=== PATIENT | female | born 1940 | race Caucasian/White ===

== ENCOUNTER 2016-12-06 08:36 | Inpatient (IN) | payer BC, OTHER ==
[2016-11-20 09:35] VITALS: BMI 37.0
--- NOTE | 2016-11-20 10:13 | PAT Medication Instructions ---
Service Date Nov 20, 2016. Current Home Medication List Acetaminophen (Tylenol Arthritis Ext Rel), 1,300 MG PO BID Calcium Carbonate-Vitamin D (Calcium + D), 1 TAB PO HS Chromium (Chromium), 1,000 MCG PO QAM Dabigatran Etexilate Mesylate (Pradaxa), 150 MG PO BID Diphenhydramine Hcl (Benadryl Allergy), 26 MG PO HS Esomeprazole Magnesium (Nexium), 40 MG PO QAM Furosemide (Lasix), 20 MG PO QAM PRN for RN Gabapentin (Neurontin), 600 MG PO TID Dkmtvvhdanr-Qgvqvtlclsj-Vctkjo (GeneriMed Health Ad), 1 TAB PO QAM Magnesium Oxide (Mag-Ox), 400 MG PO QAM Metformin Hcl (Glucophage), 1,000 MG PO BID Metoprolol Succinate (Toprol Xl), 50 MG PO QAM Multiple Vitamins W/ Minerals (Hair Skin and Nails Formu), 1 TAB PO QAM Multivitamin (Multivitamin), 1 TAB PO HS Olmesartan/Hctz (Benicar Hct 20/12.5), 1 TAB PO QAM Propafenone Hcl (Propafenone Hcl), 150 MG PO TID Rosuvastatin Calcium (Crestor), 10 MG PO HS [Iron], 65 MG PO HS Medication Instructions For Your Scheduled Surgery - Instructions to be given by Cardiology: Dabigatran Etexilate Mesylate (Pradaxa), 150 MG PO BID - Hold the following medications 2 weeks prior to surgery: Skjdduvlpmd-Exbphlwhneq-Dgjtic (GeneriMed Health Ad), 1 TAB PO QAM - Hold the following medications 48 hours prior to surgery: Metformin Hcl (Glucophage), 1,000 MG PO BID - Hold the following medications the morning of surgery: Multiple Vitamins W/ Minerals (Hair Skin and Nails Formu), 1 TAB PO QAM Olmesartan/Hctz (Benicar Hct 20/12.5), 1 TAB PO QAM Chromium (Chromium), 1,000 MCG PO QAM Furosemide (Lasix), 20 MG PO QAM PRN Magnesium Oxide (Mag-Ox), 400 MG PO QAM - Take the following medications the morning of surgery with a sip of water OTHERWISE NOTHING TO EAT OR DRINK AFTER MIDNIGHT: Esomeprazole Magnesium (Nexium), 40 MG PO QAM Metoprolol Succinate (Toprol Xl), 50 MG PO QAM Gabapentin (Neurontin), 600 MG PO TID Propafenone Hcl (Propafenone Hcl), 150 MG PO TID Acetaminophen (Tylenol Arthritis Ext Rel), 1,300 MG PO BID (may take if needed up to 4 hours prior to surgery) - Take the following medications as scheduled the night before surgery: Multivitamin (Multivitamin), 1 TAB PO HS Rosuvastatin Calcium (Crestor), 10 MG PO HS [Iron], 65 MG PO HS Calcium Carbonate-Vitamin D (Calcium + D), 1 TAB PO HS Diphenhydramine Hcl (Benadryl Allergy), 26 MG PO HS Gabapentin (Neurontin), 600 MG PO TID Furosemide (Lasix), 20 MG PO QAM PRN for RN Propafenone Hcl (Propafenone Hcl), 150 MG PO TID Acetaminophen (Tylenol Arthritis Ext Rel), 1,300 MG PO BID If you have any questions please call us at [phone] or [phone] or [phone]
[2016-11-20 11:15] LABS: BASO % 0.5 %; BASO ABS # 0.03 K/uL (0-0.2); COMPLETE YES; EOS % 4.2 %; HEMATOCRIT 38.4 % (37-47); IG% 0.3 %; LYMPH % 26.9 %; LYMPH ABS # 1.73 K/uL (1.2-3.4); MEAN CORPUSCULAR HEMOGLOBIN 31.2 pg (25-34); MEAN CORPUSCULAR HGB CONC 32.8 g/dl (32-36); MEAN PLATELET VOLUME 10.2 fL (7.4-10.4); MONO % 7.8 %; NEUT % 60.3 %; PLATELET COUNT 282 K/uL (130-400); RED BLOOD COUNT 4.04 M/uL (4.2-5.4); WHITE BLOOD COUNT 6.42 K/uL (4.8-10.8)
--- NOTE | 2016-11-20 11:18 | DIAGNOSTIC IMAGING REPORT ---
CHEST PREADMISSION(PA/LAT) CLINICAL HISTORY: Preoperative chest COMPARISON STUDY: No previous studies for comparison. FINDINGS: The cardiac and mediastinal contours are normal. There is no evidence of focal pulmonary consolidation. There is no evidence of failure. No pleural effusions are visualized.[ IMPRESSION: No active disease in the chest. Electronically signed by: Mukesh Lemos M.D. 11/20/2016 11:16 AM Dictated Date/Time: 11/20/2016 11:16 AM
[2016-11-20 11:25] LABS: INR 1.1 (0.9-1.1); PARTIAL THROMBOPLASTIN RATIO 1.3
[2016-11-20 11:34] LABS: BUN/CREATININE RATIO 17.9 (10-20); CALCIUM 9.8 mg/dl (8.5-10.1); POTASSIUM 4.6 mmol/L (3.5-5.1)
[2016-11-20 12:41] LABS: ESTIMATED AVERAGE GLUCOSE 126 mg/dl; HA1C FLAG Normal (Normal)
--- NOTE | 2016-12-05 09:53 | HISTORY & PHYSICAL EXAMINATION ---
DATE OF ADMISSION: 12/06/2016 CHIEF COMPLAINT: Right knee pain. HISTORY OF PRESENT ILLNESS: The patient is a 76-year-old female with known osteoarthritis about her right knee. She is unable to take anti-inflammatory medications due to anticoagulation for her atrial fibrillation. She has ongoing pain and disability with activities of daily living. She has pain with prolonged weightbearing and standing activities. She has difficulty with any kneeling, bending, or squatting activities. She now desires to proceed with right total knee arthroplasty. PAST MEDICAL HISTORY: Atrial fibrillation, hyperlipidemia, hypertension, gastroesophageal reflux, type 2 diabetes, diverticulosis, hiatal hernia. PAST SURGICAL HISTORY: Tonsillectomy, hernia repair, cholecystectomy, cataract surgery. MEDICATIONS: Propafenone MYB220 mg 3 times daily, metoprolol succinate ER 50 mg daily, Benicar 20 mg daily, furosemide 20 mg daily p.r.n., multivitamin daily, gabapentin 600 mg twice daily or 3 times daily, Biotin Extra Strength daily, diphenhydramine HCl 25 mg p.o. at bedtime, esomeprazole 40 mg daily, metformin HCL 1000 mg b.i.d., Pradaxa 150 mg b.i.d., Mag-Ox daily, rosuvastatin 10 mg daily, calcium 600 plus D3 of 1200 mg daily, chromium picolinate 500 mcg daily, Tylenol p.r.n., iron 325 mg daily. ALLERGIES: No known drug allergies. SOCIAL HISTORY AND REVIEW OF SYSTEMS: Noncontributory. PHYSICAL EXAMINATION: GENERAL: Well-nourished, well-developed elderly female who appears her stated age. HEENT: Normocephalic, atraumatic, extraocular movements intact, oropharynx pink and moist. NECK: Supple without adenopathy. LUNGS: Clear to auscultation bilaterally. HEART: Regular rate and rhythm. ABDOMEN: Soft, nontender, nondistended, obese. EXTREMITIES: The upper extremities are within normal limits. The right knee has a slight valgus alignment. She complains primarily of lateral compartment pain. She has mild crepitus with range of motion. Her range of motion is from 0-120 degrees. X-RAYS: X-rays were reviewed. She has a slight valgus aligned knee. She has bone on bone arthritis of the lateral compartment on the flexion view. She has lateral osteophyte formation. She has mild degenerative change about the patellofemoral joint. ASSESSMENT: Right knee degenerative joint disease. PLAN: Risks versus benefits were discussed. Consent was obtained. The patient has been seen and cleared by [facility]. Will proceed with right total knee arthroplasty in the near future.
[~2016-12-06] VITALS: Ht 167.6 cm; Wt 104.8 kg
[2016-12-06] VITALS (8 sets, daily range): BP systolic 94–131; BP diastolic 54–82; PULSE 70–78; TEMP 36.3–36.8; O2SAT 91–98; Ht 167.6 cm; Wt 104.8 kg
[~2016-12-06 08:36] MED LIST: ACET1TAB84 PO; ACETAMINOPHEN 500 MG TAB PO SCH; ATROPINE SULFATE 0.1 MG/ML 5ML SYR IV PRN; BNC/20125 PO; BUPIVACAINE 0.25% 30 ML VIAL ONE; BUPIVACAINE 0.5 % 5 MG/1 ML PF 10ML VIAL ONE; CALC600T9 PO; CEFAZOLIN 2000 MG/60 ML D5W 60 ML IV SCH; CHRO1TAB2 PO; CRS/10 PO; CeleBREX 200 MG CAP PO SCH; DABI150C PO; DEXAMETHASONE 4 MG TAB PO SCH; DIPH1TAB PO; EpHEDrine SULFATE INJ 50 MG/ML AMP IV PRN; FAMOTIDINE 20 MG TAB PO SCH; FENTANYL CITRATE INJ 50 MCG/1 ML 2 ML VIAL IV PRN; FURO-85 PO; GABA-113 PO; GABAPENTIN 300 MG CAP PO SCH; GLUC1TAB94 PO; IRON PO; LACTATED RINGER'S 1000ML 1,000 ML IV SCH; LACTATED RINGER'S 1000ML 500 ML IV ONE; LACTATED RINGER'S 1000ML IV SCH; MAGN400T6 PO; METF-384 PO; METO-217 PO; METOCLOPRAMIDE HCL 10 MG TAB PO SCH; MULT-1018 PO; MULT-506 PO; NXM/40 PO; ONDANSETRON INJ 2 MG/ML 2 ML VIAL IV PRN; PROP150T PO; ROPIVACAINE 5MG/ML 30 ML 150 MG, BUPIVACAINE/EPINEPHR 0.5% MPF 30 ML, KETOROLAC TROMETH... INFIL SCH
[2016-12-06] MEDS ORDERED: MIDAZOLAM HCL 1 MG/ML 2ML VIAL ONE ×2 (09:33)
[2016-12-06] MEDS ORDERED: FENTANYL CITRATE INJ 50 MCG/1 ML 2 ML VIAL ONE (09:33)
[2016-12-06] MEDS ORDERED: NURSING VERBAL MED ORDER ONE (10:15)
--- NOTE | 2016-12-06 10:15 | History & Physical Bridge Note ---
H&P Re-Evaluation Bridge Note: I have examined the patient, reviewed the History & Physical and in the interval since the performance of the History & Physical I have noted the following changes of clinical significance: No changes noted
[2016-12-06] MEDS ORDERED: ORTHO JOINT ANESTHETIC ONE (10:55)
[2016-12-06] MEDS ORDERED: BACITRACIN 50000 UNIT VIAL ONE (10:55)
[2016-12-06] MEDS ORDERED: POVIDONE-IODINE OP SOLN 30 ML BTL ONE (10:55)
[2016-12-06] MEDS: TRANEXAMIC ACID AMP 1,000 MG in NSS 100ML IV SCH ×2 (11:04→11:30)
[2016-12-06 11:15] LABS: INR 1.1 (0.9-1.1); PROTHROMBIN TIME (PATIENT) 11.3 SECONDS (9.0-12.0)
[2016-12-06] MEDS ORDERED: PROPOFOL IV EMULSION 10 MG/ML 20 ML VIAL IV ONE (11:40)
[2016-12-06] MEDS ORDERED: LIDOCAINE HCL 2% 2 ML VIAL (20MG/ML) ONE (11:40)
[2016-12-06] MEDS ORDERED: EpHEDrine SULFATE INJ 50 MG/ML AMP ONE (11:50)
--- NOTE | 2016-12-06 12:16 | [facility] Post Operative Brief Note ---
Immediate Operative Summary Operative Date Dec 06, 2016. Pre-Operative Diagnosis Right knee degenerative joint disease Post-Operative Diagnosis Right knee degenerative joint disease Procedure(s) Performed Right Total Knee Arthroplasty Surgeon Dr. Carlos Meza Well Driller Surgeon(s) Terry Subramanian PA-C Estimated Blood Loss 20mL Findings oa Specimens Specimen A. Right knee bone and tissue Disposition Recovery Room / PACU
[2016-12-06] MEDS ORDERED: MAGNESIUM HYDROXIDE SUSP 30 ML UDC PO PRN (13:00)
[2016-12-06] MEDS ORDERED: ONDANSETRON INJ 2 MG/ML 2 ML VIAL IV PRN (13:00)
[2016-12-06] MEDS ORDERED: MoRPHine SULFATE 2 MG/ML CARP IV PRN (13:00)
[2016-12-06] MEDS ORDERED: FUROSEMIDE 20 MG TAB PO PRN (13:00)
[2016-12-06] MEDS ORDERED: ZOLPIDEM TARTRATE 5 MG TAB PO PRN (13:00)
[2016-12-06] MEDS ORDERED: ALUMINUM/MAGNESIUM/SIMETH (MAALOX MAX) 30 ML UDC PO PRN (13:00)
[2016-12-06] MEDS ORDERED: METOCLOPRAMIDE HCL INJ 5 MG/ML 2 ML VIAL IV PRN (13:00)
--- NOTE | 2016-12-06 13:50 | Anesthesiology Progress Note ---
Anesthesia Post Op Note Date & Time Dec 06, 2016 at 13:49 Vital Signs Pain Intensity: 0 Vital Signs Past 12 Hours Date Time Temp Pulse Resp B/P Pulse Ox O2 Delivery O2 Flow Rate FiO2 12/06/16 13:40 73 16 125/63 96 Nasal Cannula 2 12/06/16 13:30 71 16 126/68 98 Nasal Cannula 2 12/06/16 13:20 74 16 122/63 97 Nasal Cannula 2 12/06/16 13:10 70 16 118/88 98 Nasal Cannula 2 12/06/16 13:00 73 16 116/66 100 Mask 5 12/06/16 12:50 36.4 75 16 113/58 96 Mask 5 12/06/16 09:07 36.8 73 20 131/82 96 Room Air Notes Mental Status: alert / awake / arousable, participated in evaluation Pt Amnestic to Procedure: Yes Nausea / Vomiting: adequately controlled Pain: adequately controlled Airway Patency, RR, SpO2: stable & adequate BP & HR: stable & adequate Hydration State: stable & adequate Neuraxial Anesthesia: was administered, sensory block is resolving Anesthetic Complications: no major complications apparent
--- NOTE | 2016-12-06 13:50 | DIAGNOSTIC IMAGING REPORT ---
RIGHT KNEE 1 OR 2 VIEWS ROUTINE CLINICAL HISTORY: AP/LATERAL IN PACU RIGHT KNEE Right pain COMPARISON: None. DISCUSSION: Anatomic alignment status post total right knee replacement. Good contact between prosthetic and underlying bone. Expected soft tissue postoperative change IMPRESSION: Negative study. Electronically signed by: Spencer Hale M.D. 12/06/2016 1:49 PM Dictated Date/Time: 12/06/2016 1:28 PM
--- NOTE | 2016-12-06 15:24 | OPERATIVE REPORT ---
DATE OF OPERATION: 12/06/2016 PREOPERATIVE DIAGNOSIS: Osteoarthritis, right knee. POSTOPERATIVE DIAGNOSIS: Osteoarthritis, right knee. PROCEDURE: Right total knee arthroplasty. SURGEON: Dr. Meza. MACHINE HOSE CUTTER: Terry Subramanian PA-C ANESTHESIA: Spinal. COMPLICATIONS: None. COMPONENTS USED: Femoral size 3, tibial size 3, tibial poly 13, patella size 36. CONDITION: Recovery room stable. OPERATION AND FINDINGS: Following induction of spinal anesthesia, the patient's right leg was prepped and draped in the usual sterile manner. Limb was exsanguinated with an Esmarch bandage and tourniquet was inflated to 350 mmHg. A longitudinal incision was made anteriorly. Subcutaneous tissue was sharply dissected. Electrocautery was used for hemostasis. Prepatellar bursa was incised and median parapatellar incision was performed. Patella was everted and the knee was flexed. Fat pad was removed to aid in visualization and the anterior and posterior cruciate ligaments were removed. The medial face of the tibia was cleared of soft tissue first with a Bovie and a Lobato elevator. This tissue was retracted posteriorly using a blunt Hohmann. A Maddox retractor was used to expose the synovium above on the anterior aspect of the femur and this was removed down to bone. The PSI guide was placed on the distal femur and two pins were placed anteriorly and kept in position and two additional pins were placed distally and removed. The distal femoral cutting block was placed in position and the distal femoral cut was used in the +0 setting. Next, the cutting block was removed and the spinal block was placed in the distal end of the femur. Care was taken to ensure appropriate external rotation and feeler gauge was used to ensure no notching would occur. The femoral block was centered on the distal femur and in the medial and lateral direction and was fixed using two bone screws. The gold pins were then removed. The oscillating saw was used to create the bone cuts and the distal femoral cutting block was removed and the reciprocating saw was used to further trim the femoral cuts as well as a deep in the area for the trochlear groove. Next, posterior condyle remnants were removed. Following this, a meniscal clamp and knife were utilized to remove the anterior portion of both medial and lateral meniscus. The proximal tibia PSI guide was placed into position and the proximal tibial cutting guide was screwed into position. The extra medullary alignment guide was utilized to ensure appropriate alignment. The proximal tibia was cut and the proximal tibial cutting block was removed and this bone fragment was removed. The appropriate guide was used to perform the notch cut on the distal femur and a lamina button bradder and a cochlear knife were utilized to finish both medial and lateral meniscectomies to remove any remnants of the posterior or anterior cruciate ligaments. Following this, the distal femoral component was impacted into position and blunt Stephania was used to sublux the tibia anteriorly. The proximal tibia was sized and a 3 tibial tray was chosen as the size to be used. This was put into position and appropriate external rotation and a double check with extramedullary alignment guide was performed. The canal for the tibial stem was prepared first with a 17 mm drill and then the punch and a mallet and the trial tibial poly was placed. A 36 was chosen the size to be used. It was brought to extension and the patella was prepared with the patellar reamer. A 13 component was chosen the size to be used. The trial component was placed and knee was taken through a full range of motion and there was found to be no lateral subluxation of the tibia. No lateral release was required. The trials were all removed. The final components were obtained and assembled. Cement was mixed. The knee was thoroughly irrigated and the ortho mix was injected about the knee joint. The final components were cemented into position. After thoroughly suctioning and drying the bone ends, all excess cement was removed. The knee was held in extension while the cement hardened. The wound was irrigated and closed over a Hemovac drain. #1 Vicryl was used to close the extensor mechanism. Subcutaneous tissues closed using 0 Dexon. Skin was closed with christian. Sterile dressing of Adaptic, 4 x 4's, sterile Webril, and Johny was applied. The patient tolerated the procedure well. Due to the complex nature of the procedure, the entire surgery was performed with the operational assistance of Terry Subramanian PA-C. The executive chef assistant, under direct supervision, was involved in the actual performance of all aspects of the surgical procedure including hemostasis, tissue retraction and incision, instrument management, patient positioning, and wound closure. I attest to the content of the Intraoperative Record and any orders documented therein. Any exceptio ns are noted below.
[2016-12-06] MEDS ORDERED: MoRPHine SULFATE 10 MG/ML CARP/VIAL IV PRN (16:00)
[2016-12-06] MEDS ORDERED: MoRPHine SULFATE 4 MG/ML 1 ML CARP\\VIAL IV PRN (16:00)
--- NOTE | 2016-12-06 16:29 | CONSULTATION REPORT ---
DATE OF CONSULTATION: 12/06/2016 MEDICAL CONSULTATION CHIEF COMPLAINT: Right knee pain. We are consulted for medical management. HISTORY OF PRESENT ILLNESS: A 76-year-old female with known osteoarthritis, right knee and failed outpatient conservative management treatment and was admitted for a right total knee arthroplasty that was done today. Currently, she denies any complaints. REVIEW OF SYSTEMS: Negative except as above. Ten out of 14 systems were reviewed. PAST MEDICAL HISTORY: Significant for atrial fibrillation, hyperlipidemia, hypertension, GERD, type 2 diabetes mellitus, diverticulosis, hiatal hernia. PAST SURGICAL HISTORY: Hernia repair, tonsillectomy, cholecystectomy, cataract surgery. OUTPATIENT MEDICATIONS: Tylenol 1300 mg p.o. b.i.d., calcium carbonate with vitamin D 1 tablet p.o. at bedtime, chromium 1000 mcg p.o. daily, Pradaxa 150 mg p.o. b.i.d., Benadryl 25 mg p.o. at bedtime, Nexium 40 mg daily, furosemide 20 mg p.o. daily p.r.n. swelling, gabapentin 600 mg p.o. t.i.d., glucosamine chondroitin hyaluronic acid 1 tablet p.o. daily, magnesium oxide 400 mg p.o. daily, metformin 1000 mg p.o. b.i.d., metoprolol XL 50 mg p.o. daily, multivitamin 1 tablet p.o. daily at bedtime, Benicar HCT 20/12.5 mg 1 tablet p.o. daily, propafenone 150 mg p.o. t.i.d., rosuvastatin 10 mg p.o. at bedtime, iron 65 mg p.o. at bedtime. ALLERGIES: The patient has no known allergies. FAMILY HISTORY: Significant for coronary artery disease and diabetes. SOCIAL HISTORY: Does not smoke, does not drink, does not use drugs. PHYSICAL EXAMINATION: VITAL SIGNS: Temperature 36.3, pulse 78, respirations 16, blood pressure 126/75, 94% on 2 liters nasal cannula. GENERAL: Not in acute distress. HEENT: Normocephalic, atraumatic. PERRLA, EOMI. Mouth moist, no lesions. NECK: No JVD. Trachea midline. Thyroid is not enlarged. LUNGS: Clear to auscultation bilateral. No wheezes, no rhonchi. ABDOMEN: Soft, nontender, nondistended. Bowel sounds present bilateral. EXTREMITIES: Upper extremities within normal limits. The right knee has a cold compress and a dressing over it. 2+ pulses present bilateral. No cyanosis or clubbing. IMAGING DATA: X-ray was done today showed negative study, anatomic alignment status post total right knee replacement. LABORATORIES: Not done except for glucose checks in the range of 136-151 with A1c of 6.0 on 11/20/2016. INR 1.1 and PTT of 25.8. ASSESSMENT AND PLAN: This is a 76-year-old female who had her right knee replaced; we are consulted for medical management. 1. History of paroxysmal atrial fibrillation, currently normal sinus rhythm. Continue metoprolol and Pradaxa twice a day. 2. Hyperlipidemia. Continue statins. 3. Hypertension. Restart Benicar, metoprolol. 4. Gastroesophageal reflux disease, restart omeprazole. 5. Type 2 diabetes. Hold metformin for 2 days and restart later, institute insulin sliding scale and check glucose before meals and at bedtime. Recent A1c is 6.0. 6. History of occasional lower extremity swelling. The patient was taking furosemide 20 mg daily as needed for swelling. Continue to monitor volume status and give Lasix as needed. 7. Status post right knee replacement. Deep vein thrombosis prophylaxis, physical therapy, occupational therapy, pain management as per surgery. The patient is a full code. Time spent on doing this consult - 35 minutes.
[2016-12-06] MEDS: SODIUM CHLORIDE 0.9% 1000ML 1,000 ML IV SCH ×2 (17:34→22:26)
[2016-12-06] MEDS: KETOROLAC TROMETHAMINE 15 MG/ML VIAL IV. SCH ×2 (17:34→22:23)
[2016-12-06] MEDS: GABAPENTIN 600 MG TAB PO SCH ×2 (17:34→21:04)
[2016-12-06] MEDS: FERROUS GLUCONATE 324 MG TAB PO SCH (17:35)
[2016-12-06] MEDS: PROPAFENONE HCL 150 MG TAB PO SCH ×2 (17:35→21:05)
[2016-12-06] MEDS: ACETAMINOPHEN 500 MG TAB PO SCH (17:36)
[2016-12-06] MEDS: OXYCODONE HCL IR 5 MG TAB (IMMEDIATE RELEASE) PO PRN (18:18)
[2016-12-06] MEDS ORDERED: GLUCOSE 10 TABS/TUBE PO PRN (18:30)
[2016-12-06] MEDS ORDERED: GLUCOSE 40% GEL 15 GM TUBE PO PRN (18:30)
[2016-12-06] MEDS ORDERED: GLUCAGON FOR INJ 1 MG VIAL SQ PRN (18:30)
[2016-12-06] MEDS ORDERED: DEXTROSE 50% 50 ML SYR IV PRN (18:30)
[2016-12-06] MEDS: CEFAZOLIN IV 2,000 MG in DEXTROSE 5% 50ML 50 ML IV SCH (21:04)
[2016-12-06] MEDS: DOCUSATE SODIUM 100 MG CAP PO SCH (21:04)
[2016-12-06] MEDS: ROSUVASTATIN CALCIUM 10 MG TAB PO SCH (21:04)
[2016-12-06] MEDS: OXYCODONE HCL 10 MG TABCR (OXYCONTIN) PO SCH (21:05)
[2016-12-06] MEDS: INSULIN ASPART 100 UNITS/ML 3 ML PEN SC SCH (21:07)
[2016-12-07] MEDS: ACETAMINOPHEN 500 MG TAB PO SCH ×3 (01:53→18:35)
[2016-12-07 03:17] VITALS: BP 99/59; PULSE 91; TEMP 36.6; O2SAT 92
[2016-12-07] MEDS: CEFAZOLIN IV 2,000 MG in DEXTROSE 5% 50ML 50 ML IV SCH (03:59)
[2016-12-07] MEDS: KETOROLAC TROMETHAMINE 15 MG/ML VIAL IV. SCH ×2 (04:00→10:00)
[2016-12-07 06:32] LABS: HEMATOCRIT 31.4 % (37-47); MEAN CELL VOLUME 92.9 fL (80-100); MEAN CORPUSCULAR HEMOGLOBIN 30.5 pg (25-34); MEAN CORPUSCULAR HGB CONC 32.8 g/dl (32-36); PLATELET COUNT 249 K/uL (130-400); RED BLOOD COUNT 3.38 M/uL (4.2-5.4); WHITE BLOOD COUNT 11.73 K/uL (4.8-10.8)
[2016-12-07 07:05] LABS: BUN/CREATININE RATIO 26.9 (10-20); CALCIUM 8.4 mg/dl (8.5-10.1); CREATININE 1.3 mg/dl (0.60-1.20); POTASSIUM 4.7 mmol/L (3.5-5.1)
[2016-12-07] MEDS ORDERED: DEXAMETHASONE INJ 10 MG in SYRINGE 0 ML IV SCH (07:30)
--- NOTE | 2016-12-07 07:40 | Orthopedic Progress Note ---
Orthopedic Progress Note Date of Service Dec 07, 2016. Subjective Post OP Day: 1 Reports: feeling well Objective N/V intact, dressing C/D/I (Hemovac in place), toes mobile Date Time Temp Pulse Resp B/P Pulse Ox O2 Delivery O2 Flow Rate FiO2 12/07/16 03:17 36.6 91 18 99/59 92 Room Air 12/07/16 00:22 Room Air 12/06/16 23:18 36.4 73 18 94/54 91 Room Air 12/06/16 19:16 36.6 70 16 104/61 94 Room Air 12/06/16 17:23 36.3 76 18 112/65 96 Room Air 12/06/16 16:23 36.6 78 16 101/60 97 Nasal Cannula 2.0 12/06/16 15:50 Nasal Cannula 2.0 12/06/16 15:20 36.5 71 16 115/69 98 Nasal Cannula 2.0 12/06/16 14:50 36.4 72 16 116/69 97 Nasal Cannula 2.0 12/06/16 14:15 94 Nasal Cannula 2.0 12/06/16 14:15 94 Nasal Cannula 2.0 12/06/16 14:15 36.3 78 16 126/75 94 Nasal Cannula 2.0 12/06/16 13:59 75 16 126/66 96 Nasal Cannula 2 12/06/16 13:50 36.4 75 16 126/67 96 Nasal Cannula 2 12/06/16 13:40 73 16 125/63 96 Nasal Cannula 2 12/06/16 13:30 71 16 126/68 98 Nasal Cannula 2 12/06/16 13:20 74 16 122/63 97 Nasal Cannula 2 12/06/16 13:10 70 16 118/88 98 Nasal Cannula 2 12/06/16 13:00 73 16 116/66 100 Mask 5 12/06/16 12:50 36.4 75 16 113/58 96 Mask 5 12/06/16 09:07 36.8 73 20 131/82 96 Room Air Laboratory Results 24 Hours: Test 12/06/16 11:02 12/07/16 05:42 Prothromb Time International Ratio 1.1 Prothrombin Time 11.3 SECONDS Hematocrit 31.4 % Hemoglobin 10.3 g/dL Assessment & Plan Assessment: 76 yo female stable POD #1 s/p right TKA Plan: 1. Med management 2. DVT prophylaxis- Pradaxa, TEDs, SCDs 3. PT/OT 4. D/C planning- pt interested in [facility] rehab
[2016-12-07 07:48] VITALS: BP 140/60; PULSE 92; TEMP 36.2; O2SAT 95
[2016-12-07 08:50] VITALS: O2SAT 95
[2016-12-07] MEDS: FERROUS GLUCONATE 324 MG TAB PO SCH ×3 (08:54→18:35)
[2016-12-07] MEDS: DOCUSATE SODIUM 100 MG CAP PO SCH ×2 (08:54→21:53)
[2016-12-07] MEDS: PANTOprazole SOD 40 MG TAB PO SCH (08:55)
[2016-12-07] MEDS: MAGNESIUM OXIDE 400 MG TAB PO SCH (08:55)
[2016-12-07] MEDS: GABAPENTIN 600 MG TAB PO SCH ×3 (08:55→21:53)
[2016-12-07] MEDS: MULTIVITAMIN TAB PO SCH (08:55)
[2016-12-07] MEDS: PROPAFENONE HCL 150 MG TAB PO SCH ×3 (08:56→21:53)
[2016-12-07] MEDS: METOPROLOL SUCC 50MG EXT REL TAB PO SCH (08:56)
[2016-12-07] MEDS ORDERED: HYDROCHLOROTHIAZIDE 25 MG TAB PO SCH (09:00)
[2016-12-07] MEDS ORDERED: OLMESARTAN MEDOXOMIL 20 MG TAB PO SCH (09:00)
[2016-12-07] MEDS: POLYETHYLENE (MIRALAX) 17 GM PACK PO SCH ×2 (09:01→21:54)
[2016-12-07] MEDS: OXYCODONE HCL 10 MG TABCR (OXYCONTIN) PO SCH ×2 (09:02→21:54)
[2016-12-07] MEDS: SODIUM CHLORIDE 0.9% 1000ML 1,000 ML IV SCH (09:05)
[2016-12-07] MEDS ORDERED: NURSING VERBAL MED ORDER ONE ×2 (10:15→11:30)
[2016-12-07] MEDS: INSULIN ASPART 100 UNITS/ML 3 ML PEN SC SCH ×4 (10:18→21:00)
--- NOTE | 2016-12-07 10:18 | Clinical Documentation Query ---
CLINICAL DOCUMENTATION QUERY Dr. KEARNEY, In your clinical opinion is this patient being managed for: (x ) Acute kidney failure on CKD stage III ( ) Other explanation of clinical findings (Please Explain) ( ) Unable to determine (Please Define) ( ) Need to Discuss ( ) Not Agree The medical record reflects the following clinical findings, treatment, and risk factors. Clinical Indicators: Baseline Cr 1.0 which has trended up to Cr 1.30. GFR range of 40.4-55.5 Treatment: IV fluids, monitor PRP Risk Factors: age, A fib, hx hypertension, DM, mild hypotension after surgery Please clarify and document your clinical opinion in the progress notes and discharge summary. Terms such as "probable", "suspected", "likely", "questionable", "possible", or "still to be ruled out" are acceptable. IF IN AGREEMENT, YOU MUST DOCUMENT ABOVE DIAGNOSTIC STATEMENT IN DAILY PROGRESS NOTES AND DISCHARGE SUMMARY. This document is not part of the patient's record. Thank You, Sarah Hogan, RN [phone]
[2016-12-07 11:31] VITALS: BP 102/64; PULSE 87; TEMP 36.7; O2SAT 93
[2016-12-07] MEDS: DABIGATRAN ELEXILATE 75 MG CAP PO SCH ×2 (11:34→21:54)
[2016-12-07 15:16] VITALS: BP 111/67; PULSE 69; TEMP 36.8; O2SAT 95
--- NOTE | 2016-12-07 20:02 | Progress Note ---
Subjective Date of Service: Dec 07, 2016. Subjective Pt evaluation today including: conversation w/ patient, conversation w/ family ( at bedside), physical exam, chart review, lab review, review of inpatient medication list Pain: right knee - mild only PO Intake: eating fine Voiding: no voiding problems "I feel good" denies cp, sob, dyspnea, abd pain, nausea, emesis; minimal flatus, however hoping to go to [facility] for rehab Review of Systems Constitutional: No chills, No fever Respiratory: No cough, No shortness of breath, No sputum Cardiac: No chest pain, No orthopnea Abdomen: No pain Objective Vital Signs Date Time Temp Pulse Resp B/P Pulse Ox O2 Delivery O2 Flow Rate FiO2 12/07/16 15:45 Room Air 12/07/16 15:16 36.8 69 18 111/67 95 Room Air 12/07/16 11:31 36.7 87 14 102/64 93 Room Air 12/07/16 08:50 95 Room Air 12/07/16 07:48 36.2 92 16 140/60 95 Room Air 12/07/16 07:20 Room Air 12/07/16 03:17 36.6 91 18 99/59 92 Room Air 12/07/16 00:22 Room Air 12/06/16 23:18 36.4 73 18 94/54 91 Room Air Physical Exam General Appearance: no apparent distress ENT: pharynx normal Neck: no JVD Respiratory/Chest: lungs clear, no respiratory distress, no accessory muscle use Cardiovascular: regular rate, rhythm, no gallop, no murmur Abdomen: normal bowel sounds, non tender, soft, no organomegaly Extremities: no pedal edema Neurologic/Psychiatric: alert, oriented x 3 Comments: right knee - dressings intact, drain in place Laboratory Results Last 24 Hours Test 12/06/16 20:59 12/07/16 05:42 12/07/16 09:09 12/07/16 12:06 Bedside Glucose 181 mg/dl 285 mg/dl 232 mg/dl White Blood Count 11.73 K/uL Red Blood Count 3.38 M/uL Hemoglobin 10.3 g/dL Hematocrit 31.4 % Mean Corpuscular Volume 92.9 fL Mean Corpuscular Hemoglobin 30.5 pg Mean Corpuscular Hemoglobin Concent 32.8 g/dl RDW Standard Deviation 44.1 fL RDW Coefficient of Variation 12.9 % Platelet Count 249 K/uL Mean Platelet Volume 10.0 fL Sodium Level 140 mmol/L Potassium Level 4.7 mmol/L Chloride Level 107 mmol/L Carbon Dioxide Level 25 mmol/L Anion Gap 8.0 mmol/L Blood Urea Nitrogen 35 mg/dl Creatinine 1.30 mg/dl Est Creatinine Clear Calc Drug Dose 46.4 ml/min Estimated GFR () 46.8 Estimated GFR (Non- 40.4 BUN/Creatinine Ratio 26.9 Random Glucose 152 mg/dl Calcium Level 8.4 mg/dl Test 12/07/16 17:06 Bedside Glucose 134 mg/dl Assessment and Plan 76yo female: 1. s/p right TKR - DVT proph, pain control, dispo - per ortho 2. acute kidney injury - hold HCTZ, hold ARB, hold toradol; has received significant volume of fluid since admission - reasonable to observe off fluids rest of today repeat BMP am 3. acute blood loss anemia - mild, repeat H/H in am 4. a. fib - clinically appears to be in NSR. Cont BB, cont pradaxa 5. T2DM - adjust correction factor & carb ratio for uncontrolled fingersticks 6. HTN - controlled 7. GERD - PPI 8. constipation - add miralax BID will follow Discharge planning: rehab hospital
[2016-12-07] MEDS: ROSUVASTATIN CALCIUM 10 MG TAB PO SCH (22:48)
[2016-12-07 23:16] VITALS: BP 106/64; PULSE 69; TEMP 36.8; O2SAT 95
[2016-12-08] VITALS (8 sets, daily range): BP systolic 110–151; BP diastolic 65–81; PULSE 62–96; TEMP 36.4–37; O2SAT 92–97
[2016-12-08] MEDS: ACETAMINOPHEN 500 MG TAB PO SCH ×2 (01:56→09:44)
[2016-12-08 07:10] LABS: MEAN CELL VOLUME 93.2 fL (80-100); MEAN CORPUSCULAR HEMOGLOBIN 30.7 pg (25-34); MEAN PLATELET VOLUME 10.1 fL (7.4-10.4); PLATELET COUNT 274 K/uL (130-400); RED BLOOD COUNT 3.22 M/uL (4.2-5.4); WHITE BLOOD COUNT 11.43 K/uL (4.8-10.8)
[2016-12-08 07:28] LABS: BUN/CREATININE RATIO 31.5 (10-20); CALCIUM 8.9 mg/dl (8.5-10.1); CREATININE 1.1 mg/dl (0.60-1.20)
[2016-12-08] MEDS: POLYETHYLENE (MIRALAX) 17 GM PACK PO SCH (08:00)
[2016-12-08] MEDS: FERROUS GLUCONATE 324 MG TAB PO SCH ×2 (08:00→12:54)
[2016-12-08] MEDS: GABAPENTIN 600 MG TAB PO SCH ×2 (08:01→13:52)
[2016-12-08] MEDS: PANTOprazole SOD 40 MG TAB PO SCH (08:01)
[2016-12-08] MEDS: PROPAFENONE HCL 150 MG TAB PO SCH ×2 (08:01→13:53)
[2016-12-08] MEDS: MAGNESIUM OXIDE 400 MG TAB PO SCH (08:01)
[2016-12-08] MEDS: MULTIVITAMIN TAB PO SCH (08:01)
[2016-12-08] MEDS: METOPROLOL SUCC 50MG EXT REL TAB PO SCH (08:01)
[2016-12-08] MEDS: DABIGATRAN ELEXILATE 75 MG CAP PO SCH (08:01)
[2016-12-08] MEDS: INSULIN ASPART 100 UNITS/ML 3 ML PEN SC SCH ×2 (08:09→12:57)
[2016-12-08] MEDS: OXYCODONE HCL 10 MG TABCR (OXYCONTIN) PO SCH (08:10)
--- NOTE | 2016-12-08 08:54 | PROGRESS NOTE ---
DATE: 12/08/2016 DATE: 12/08/2016. HISTORY OF PRESENT ILLNESS: Mrs. Odell is a very pleasant 76-year-old obese white female with a history of paroxysmal atrial fibrillation, type 2 diabetes mellitus, hypertension, GERD, and osteoarthritis. She is now postoperative day #2 from a right total knee arthroplasty. Her surgery was complicated by acute kidney injury and a postoperative blood loss anemia. The patient is currently being seen in room 304. She offers no complaints. Her knee pain is very well controlled. She denies any chest pain, heaviness, tightness, or pressure. Denies any shortness of breath, dyspnea on exertion, orthopnea, or PND. No palpitations, syncope, or near syncope. No recurrent atrial fibrillation to her knowledge. She is doing well in PT / OT, and is awaiting placement in the [facility] for a rehab hospital or a alf facility. Please note that her serum creatinine is now down to 1.10 mg/dL from 1.30 mg/dL yesterday. PHYSICAL EXAMINATION: VITAL SIGNS: Temperature is 37 degrees Celsius, pulse is 74 and regular, respiratory rate is 14 and unlabored. Blood pressure is 120/72, SpO2 is 97% on room air. GENERAL: The patient is in no acute distress. HEAD, EYES, EARS, NOSE, AND THROAT: Head is atraumatic, normocephalic. EOMs intact. Sclerae are anicteric. Face is symmetric. No perioral cyanosis. NECK: Without thyromegaly, adenopathy or JVD. CHEST AND LUNGS: Clear to auscultation throughout all lung jose, no wheezes, rales or rhonchi. CARDIOVASCULAR: S1 and S2 are regular without murmur, gallop or rub. PMI is nonpalpable. No lifts, heaves, or thrills. ABDOMINAL EXAMINATION: Bowel sounds present. No masses, organomegaly or tenderness. EXTREMITIES: Are without clubbing, cyanosis or edema. Intact posterior tibial and radial pulses bilaterally. Right knee is dressed. NEUROLOGIC EXAMINATION: The patient is awake, alert and oriented. Pleasant and cooperative. Answers questions appropriately. Speech is clear. Normal movement in all 4 extremities. Gait pattern not assessed. LABORATORY DATA: White blood cell count 11.43, hemoglobin 9.9 g/dl, hematocrit 30.0%. Platelet count is 274,000. Sodium is 140 mmol/L, potassium 5.0 mmol/L, BUN 35 mg/dL. Creatinine 1.10 mg/dL. Random glucose 119 mg/dL. ASSESSMENT: 1. Postoperative day #2 right total knee arthroplasty. 2. Acute kidney injury. Creatinine is trending downward and approaching baseline. 3. Acute postoperative blood loss anemia -- the patient is asymptomatic. 4. Paroxysmal atrial fibrillation, no recurrences. 5. Type 2 diabetes mellitus. 6. Hypertension, controlled. 7. Gastroesophageal reflux disease. PLAN: 1. The patient continues to do well postoperatively and is progressing towards her goals in physical therapy. 2. As her blood pressure is well controlled and her creatinine continues to trend towards baseline, would recommend continued holding of HCTZ and angiotensin receptor celia. 3. Continue long-term beta celia. 4. Continue Pradaxa for both thromboembolic prophylaxis related to Afib and for postoperative DVT prophylaxis. 5. Continue Propafenone 150 mg t.i.d. 6. Continue Crestor 10 mg at bedtime. 7. Continue Toprol-XL 50 mg daily. 8. Awaiting placement at a rehab facility versus alf facility in the [facility]. If she cannot be successfully placed, she is willing to go home with home health. 9. social services coordinator is involved with her care. 10. We will continue to follow. JETT
--- NOTE | 2016-12-08 09:34 | Orthopedic Progress Note ---
Orthopedic Progress Note Date of Service Dec 08, 2016. Subjective Post OP Day: 2 Reports: feeling well, pain controlled w PO medications, Denies: SOB, calf pain , chest pain, complaints, light headedness, nausea / vomiting Objective calves soft nontender, N/V intact, capillary refill less than 2 sec., dressing C /D/I, A&O x3, toes mobile provena wound vac in tact. Date Time Temp Pulse Resp B/P Pulse Ox O2 Delivery O2 Flow Rate FiO2 12/08/16 08:22 97 Room Air 12/08/16 08:04 37.0 78 20 117/72 97 Room Air 12/08/16 07:14 36.7 96 18 122/76 92 Room Air 12/08/16 05:52 36.7 67 17 110/65 96 Room Air 12/08/16 00:45 Room Air 12/07/16 23:16 36.8 69 15 106/64 95 Room Air 12/07/16 15:45 Room Air 12/07/16 15:16 36.8 69 18 111/67 95 Room Air 12/07/16 11:31 36.7 87 14 102/64 93 Room Air Laboratory Results 24 Hours: Test 12/08/16 06:54 Hematocrit 30.0 % Hemoglobin 9.9 g/dL Assessment & Plan Assessment: 76 yo female stable POD #2 s/p right TKA Plan: 1. Med management 2. DVT prophylaxis- Pradaxa, TEDs, SCDs 3. PT/OT 4. D/C planning- pt interested in [facility] rehab, await decisions 5. Patient did very well in PT this AM and in addition to that she would not hear from SNF/ rehab until Saturday, she has decided to go home w . She did very well in PT and has a good support system at home. Inhouse Planning Pain Management: Oxycontin, Morphine, PO Tylenol, Oxy IR DVT Prophylaxis: TEDs, SCDs, other (Pradaxa) Discharge Planning Discharge Planning: uncertain Pain Management: Oxycontin, PO Tylenol, Oxy IR DVT Prophylaxis: TEDs, other (pradaxa) Therapy: Physical Therapy, Occupational Therapy
[2016-12-08] MEDS: DOCUSATE SODIUM 100 MG CAP PO SCH (12:54)
[2016-12-08] MEDS ORDERED: RXC5 PO (14:57)
[2016-12-08] MEDS ORDERED: ONDA8TAB12 PO (14:57)
[2016-12-08] MEDS ORDERED: ACET-1138 PO (14:57)
[2016-12-08] MEDS ORDERED: OXYSR10 PO (14:57)
[2016-12-08] MEDS: OXYCODONE HCL IR 5 MG TAB (IMMEDIATE RELEASE) PO PRN (14:58)
--- NOTE | 2016-12-08 15:00 | Discharge Instructions ---
Discharge Instructions Admission Reason for Admission: Right Knee Osteoarthritis Discharge Discharge Diagnosis / Problem: right tka Discharge Goals Goal(s): Improve function Activity Recommendations Activity Limitations: as noted below . Instructions / Follow-Up Instructions / Follow-Up ACTIVITY RECOMMENDATIONS: SELF CARE INSTRUCTIONS AFTER TOTAL KNEE REPLACEMENT A. You may need to continue a physical therapy program after discharge from the hospital. There are several options available to you. Your doctor will assist you in selecting the best one for you. 1. An out-patient facility 2 to 3 times a week for therapy or home therapy. 2. Continue working on all exercises taught to you in the hospital. Your goals should be to increase bending of your knee to 90 degrees and beyond and to fully straighten your knee. B. You may progress at your own pace from walking with a walker or crutches to a cane; then to no assistive devices. C. Make walking a part of your daily routine. Be up as much as comfortable with rest periods throughout the day. Rest with leg elevation is very important. Use the ice wrap frequently for the first 3-4 weeks. D. There are no restrictions on activities. You may ride in a car, shop, participate in dowel pin worker and all social activities. E. Wear the long elastic stockings (GEOFF hose) 20 hours a day for 2 weeks after surgery. They can be removed several times a day for laundering and for a bath. F. You may shower, no tub baths until cleared by your doctor. SPECIAL CARE INSTRUCTIONS: VERY IMPORTANT TO READ AND REVIEW A. There are a few signs you need to watch for after you are home. Call [facility] if you notice any of the followin. Increased severe knee pain. Some pain is expected especially when you exercise. 2. Increased swelling in your leg or knee; pain or swelling of the calf muscle in either lower leg. 3. Any fluid drainage from the incision. 4. Shortness of breath or chest pain. B. Please call [facility] at if you have any concerns or questions about your operation or recovery. The doctor or his nurse will return your call promptly. C. You must take antibiotics before dental work, bladder, bowel or other surgery. Your doctor will provide you with a permanent care to carry describing this precaution. IMPORTANT: * REMEMBER TO TAKE ASPIRIN, 81 MG, TWICE DAILY FOR 4 WEEKS UNLESS OTHERWISE DIRECTED. THIS IS YOUR BLOOD THINNER. * HIGH RISK PATIENTS MAY BE PRESCRIBED A STRONGER BLOOD THINNER. THIS WILL BE PROVIDED AT DISCHARGE. * CALL IF INCREASED PAIN, REDNESS, DRAINAGE OR FEVER GREATER THAT 101. * WEAR GEOFF HOSE 20 HOURS PER DAY FOR 2 WEEKS. * YOU MAY HAVE A LARGE BAND-AID LIKE DRESSING (SILVERON). THIS WILL REMAIN ON YOUR INCISION FOR 7 DAYS, THEN CAN BE REMOVED. IF INCISION IS LEAKING THROUGH DRESSING, CALL THE OFFICE . FOLLOW UP VISIT: If appointment is not already scheduled: Please call [facility] to make a follow-up appointment for 2 weeks after your surgery at . YOU HAVE A SUPERFICIAL WOUND VAC ON, REMOVE 1 WEEK POST OP AND DISCARD OF ALL PARTS. REPLACE WITH DRY DRESSINGS DAILY UNTIL FOLLOW UP IN OFFICE. Current Hospital Diet Patient's current hospital diet: Diabetes Type 2 Diet Discharge Diet Recommended Diet: Diabetes Type 2 Diet Procedures Procedures Performed: Right Total Knee Arthroplasty Pending Studies Studies pending at discharge: no Laboratory Results Hemoglobin A1c Test 11/20/16 10:48 Range/Units Estimated Average Glucose 126 mg/dl Hemoglobin A1c 6.0 H 4.5-5.6 % Medical Emergencies . Who to Call and When: Medical Emergencies: If at any time you feel your situation is an emergency, please call 911 immediately. . Non-Emergent Contact Non-Emergency issues call your: Primary Care Provider . "Provider Documentation" section prepared by Spencer Cook. VTE Core Measure Inpt VTE Proph given/why not?: Other Anticoagulation (PRADAXA), T.E.Mikhail. Stockings, SCD's
--- NOTE | 2016-12-12 14:26 | DISCHARGE SUMMARY ---
CHIEF COMPLAINT: Right knee pain. Please see complete history and physical examination. HOSPITAL COURSE: The patient underwent right total knee arthroplasty without complication. She tolerated the procedure well and was discharged to recovery room in stable condition. Her postoperative course was relatively uneventful. Her postoperative pain was reasonably well controlled with a combination of spinal anesthesia, adductor canal block, intraoperative joint injection, IV, and oral pain medications. She was started back on her regular Pradaxa postoperatively for DVT prophylaxis. She also utilized GEOFF stockings and SCDs for additional prophylaxis. Her H\T\H was stable and did not require transfusion. A medical consult was asked for to assist in her postoperative medical management. She did not have any significant postoperative medical issues. Her surgical drain was discontinued by postoperative day #2, her surgical dressing including a Prevena wound VAC will remain in place for approximately 7 days postoperative. She tolerated postop physical therapy reasonably well where she was bending her knee and ambulating appropriately. She was discharged home on postoperative day #3. She will continue her physical therapy at home. She will continue her Pradaxa for DVT prophylaxis and follow up in our office in approximately 10-14 days for initial postop evaluation.
== END 2016-12-08 16:30 | disposition home health service (06) | DRG 470 ==
LOC: ENRESERVTM → ENRESERVDT → C.ACU 08:36 → C.3E 12:55
PROC: 0SRC0J9 Replacement of Right Knee Joint with Synthetic Substitute, Cemented, Open Approach (ICD-10-PCS; principal; 2016-12-06 11:00)
DX: M17.11 Unilateral primary osteoarthritis, right knee (principal); N17.9 Acute kidney failure, unspecified; D62 Acute posthemorrhagic anemia; I48.0 Paroxysmal atrial fibrillation; K21.9 Gastro-esophageal reflux disease without esophagitis; E11.65 Type 2 diabetes mellitus with hyperglycemia; E11.42 Type 2 diabetes mellitus with diabetic polyneuropathy; E78.5 Hyperlipidemia, unspecified; Z79.899 Other long term (current) drug therapy; I10 Essential (primary) hypertension; K44.9 Diaphragmatic hernia without obstruction or gangrene; K59.00 Constipation, unspecified; M54.5 Low back pain; R20.0 Anesthesia of skin; E66.9 Obesity, unspecified; Z68.37 Body mass index [BMI] 37.0-37.9, adult; Z87.19 Personal history of other diseases of the digestive system; Z86.19 Personal history of other infectious and parasitic diseases; Z87.891 Personal history of nicotine dependence; Z79.01 Long term (current) use of anticoagulants; Z79.84 Long term (current) use of oral hypoglycemic drugs